=== PATIENT | male | born 1990 | race Caucasian/White ===

== ENCOUNTER 2025-05-05 13:17 | Emergency (ER) | payer SELFPAY ==
[2025-05-05 13:19] VITALS: BP 135/90; PULSE 89; RESP 18; TEMP 35.7; O2SAT 96; BMI 37.5
--- NOTE | 2025-05-05 14:50 | RAD_ITS ---
PROCEDURE: CERV SPINE 4 OR 5 VIEWS 05/05/2025 REASON FOR EXAM: NECK PAIN TECHNIQUE: [facility] Procedure: CERV SPINE 4 OR 5 VIEWS COMPARISON: None FINDINGS: Vertebrae: Unremarkable disc spaces: Well-maintained Alignment: Loss of the normal cervical lordosis most likely secondary to muscular spasm. soft tissues: No prevertebral soft tissue swelling. Other: RAD/Cerv Spine 4 or 5 Views IMPRESSION: Loss of the normal cervical lordosis most likely secondary to muscular spasm. No bony abnormality is seen. Disclaimer: Reading Location: [id number]
--- NOTE | 2025-05-05 14:50 | RAD_ITS ---
PROCEDURE: SHOULDER MIN 2 VIEWS 05/05/2025 REASON FOR EXAM: PAIN TECHNIQUE: Procedure Code: [facility] Modality: DX Procedure: SHOULDER MIN 2 VIEWS Laterality: Left shoulder COMPARISON: None FINDINGS: Bones: No fracture seen. Joints: Normal alignment of the acromioclavicular and glenohumeral joints. Soft tissues: Soft tissues are unremarkable. Other: RAD/Shoulder min 2 Views IMPRESSION: NO ACUTE FRACTURE OR DISLOCATION. Reading Location: [id number]
[2025-05-05] MEDS: Orphenadrine 60 MG/2 ML Ampul IM (15:11)
[2025-05-05] MEDS: Ketorolac 30 MG/ML Syringe IM (15:12)
--- NOTE | 2025-05-05 15:39 | CM.ED ---
Social work Reason for referral: no PCP/no insurance Referral source: case find SW entered patient's room, introducing self and role at [facility]. Patient accepted SW visit and confirmed lack of PCP and insurance. Patient stated just moving from [place] 2.5 months ago. Patient accepted resources of [facility] Provider Directory, list of [facility] physicians who are accepting new patients, Mimi Huertas information, and how to apply for Medicaid. Patient stated having [place] Medicaid, but needing to switch to [place] Medicaid. Patient also confirmed not having any emergency contacts. SW explained reasoning behind emergency contacts as patient confirmed having family in [place] and a kristin patient was staying with in [place]. Patient stated not wanting to burden anyone and not even having the right contacts in patient's phone due to needing to go to [facility] to get the phone fixed. Patient was provided with a [facility] card and patient denied further resources at this time. Demi Salomon, ERGONOMICS TECHNICIAN, [employer]ER
--- NOTE | 2025-05-05 15:48 | EX.ED.DYSGE1 ---
HPI History of Present Illness Chief Complaint: Other, Pain/Inj Narrative Narrative: Patient 34-year-old male with past medical history of close colitis who presented to the emergency department chief complaint left neck and shoulder pain. States that this started bothering him the other day and he states that he tried Goody's powder for pain this was not helping therefore he came here to be further evaluated. He denies any injuries or inciting events. He states that he feels very sore when he pushes/points this is in his left trapezius region. Patient denies any history of IV drug use denies any alcohol use. 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 [facility] Medical History Ulcerative colitis Home Medications ?Medication ?Instructions ?Recorded ?Last Taken ?Type cyclobenzaprine 10 mg tablet 10 mg PO TID PRN muscle spasm #20 05/05/25 Unknown Rx tabs Allergy/AdvReac Type Severity Reaction Status Date / Time No Known Allergies Allergy Verified 05/05/25 13:18 Social History Smoking Status: Current some day smoker tobacco type: cigarettes and e-cigarettes ROS ROS ED ROS Narrative Constitutional: Denies any fevers, chills, headaches Eyes: Denies double vision Cardiovascular: Denies chest pain Respiratory: Denies shortness of breath Abdomen: Denies abdominal pain nausea vomit diarrhea : Denies any urinary symptoms Neurological: Denies any numbness, weakness, tingling Musculoskeletal: Complains of neck and left shoulder pain Skin: Denies any rashes or lesions EXAM Physical Exam Narrative Exam Narrative: General: Patient was lying in bed rest comfortably did not appear to be in acute distress Head: Atraumatic, normocephalic Eyes: PERRL bilaterally, EOMI bilaterally, no conjunctival injection noted Neck: Soft, supple, trachea midline, no tenderness to palpation midline of the cervical spine patient can touch his chin to his chest without any difficulty no concern for meningeal signs Cardiovascular: Regular rate and rhythm Respiratory: Clear to auscultation bilaterally Musculoskeletal: Patient has tenderness to palpation over the left trapezius region this is pinpoint has full range of motion of the shoulder Extremities: Radial pulses +2/4 in the bilateral extremities, +5/5 strength noted in the bilateral upper and lower extremities Neurological: Patient following commands knew that he was at [facility] warm, dry, intact no rashes or lesions noted at [facility] years 2024 Skin: [ ] Const Vital Signs: 05/05/25 13:19 05/05/25 13:44 Temperature 96.2 F L Temperature Source Temporal Pulse Rate 89 Respiratory Rate 18 Respiratory Effort Normal Non-Labored Respiratory Pattern Normal Blood Pressure 135/90 H Blood Pressure Mean 105 Pulse Ox 96 Oxygen Delivery Method Room Air MDM MDM MDM Narrative Medical decision making narrative: Patient is a 34-year-old male who presented to the emergency department chief complaint of left shoulder and neck pain. On the differential diagnosis includes but not limited to musculoskeletal strain, compression fracture, pathologic fracture although have low suspicion for these. Once the workup is obtained and reviewed he will be reevaluated. Patient given IM Toradol and Norflex. On reevaluation the patient he is feeling better. Patient's x-rays were reviewed by myself and by radiology which showed no acute fractures or dislocations no with thesis noted Discussed results with the patient he would like to go home at this point time. He is advised to rotate Tylenol and ibuprofen [id number] as well as use the muscle relaxer as prescribed. He is advised to not operate anything under the influence of this medication as it will make him sleepy and drowsy. He is encouraged to return with worsening symptoms or concerns. He is agreeable this plan all question concerns answered he is discharged home in stable condition Radiography Diagnostic Testing: Clinical Impression(s) from Imaging Studies Cervical Spine X-Ray 05/05/25 14:50 IMPRESSION: Loss of the normal cervical lordosis most likely secondary to muscular spasm. No bony abnormality is seen. Disclaimer: Reading Location: [facility] Shoulder X-Ray 05/05/25 14:50 IMPRESSION: NO ACUTE FRACTURE OR DISLOCATION. Reading Location: [id number] Discharge Plan Triage Chief Complaint: Other, Pain/Inj ED Provider: Trav Armijo Dx/Rx/DC Orders Clinical Impression: Musculoskeletal strain, Neck and shoulder pain Prescriptions: New cyclobenzaprine 10 mg tablet 10 mg PO TID PRN (Reason: muscle spasm) Qty: 20 0RF Primary Care Provider: Care Physician,No Primary Referrals: Care Physician,No Primary [Primary Care Provider, Medical] Yesika Lugo, CABLE WORKER HELPER-C [facility] Activity Restrictions/Additional Instructions: Rotate Tylenol and ibuprofen [id number] when you do this you can take something every 3 hours for pain. Max dose of Tylenol in 24 hours 4000 mg max dose of ibuprofen in 24 hours 3200 mg. Your x-rays did not show any acute findings. Use muscle relaxers as prescribed do not operate anything under the influence of this medication as it will make you sleepy and drowsy. Print Language: Italian Disposition Disposition: Home, Self Care
[2025-05-05 16:09] VITALS: BP 132/100; PULSE 87; RESP 14; TEMP 36.6; O2SAT 100
== END 2025-05-05 16:09 | disposition home or self-care (01) ==
PROVIDERS: Emergency Provider Emergency Medicine; Visit Provider Emergency Medicine
DX: S16.1XXA Strain of muscle, fascia and tendon at neck level, initial encounter (principal); M25.512 Pain in left shoulder; F17.210 Nicotine dependence, cigarettes, uncomplicated; X58.XXXA Exposure to other specified factors, initial encounter
CPT/HCPCS: 72050; 73030; 96372; 99282